=== PATIENT | male | born 1950 | race Caucasian/White ===

== ENCOUNTER → 2020-08-11 10:01 | Outpatient (BNVA) | payer MEDICARE, MEDICAID, SELFPAY | PROVIDERS: Family Provider Family Medicine; PCP Family Medicine; Visit Provider Family Medicine | DX: M79.672 Pain in left foot (principal); M77.32 Calcaneal spur, left foot | CPT/HCPCS: 73630 ==

== ENCOUNTER → 2020-12-08 09:18 | Outpatient (BNVA) | payer MEDICARE, MEDICAID, SELFPAY | PROVIDERS: Family Provider Family Medicine; PCP Family Medicine; Referring Provider Family Medicine; Visit Provider Podiatrist Foot & Ankle Surgery | DX: M25.572 Pain in left ankle and joints of left foot (principal) | CPT/HCPCS: 73620; 73630; 87070; 87075; 87205 ==

== ENCOUNTER 2020-12-12 10:25 | Outpatient (CLI) | payer MEDICARE, MEDICAID, SELFPAY ==
--- NOTE | 2020-12-12 10:32 | XR_ITS ---
WS: [id number] Left foot, 3 views, 12/12/2020 Clinical Data: follow up of foreign body removal Comparison: Left foot, 12/08/2020. Findings: The foreign body has been removed from the soft tissue adjacent to the ungual tuft of the left toe di stal phalanx. There is erosion of the distal phalanx with cystic change which is the same. The remain juan of the left foot is unremarkable. XR/XR foot LT min 3V* [id number] Impression: 1. Satisfactory removal of radiopaque foreign body from distal phalanx of the l eft great toe. 2. No change in erosion of the ungual tuft and cyst formation of the distal pha lanx of the left great toe.
== END 2020-12-12 10:26 | disposition home or self-care (01) ==
LOC: RAD 10:28
PROVIDERS: PCP Family Medicine; Visit Provider Podiatrist Foot & Ankle Surgery
DX: Z98.890 Other specified postprocedural states (principal)
CPT/HCPCS: 73630